=== PATIENT | male | born 1975 | race Caucasian/White ===

== ENCOUNTER 2017-03-31 14:00 | Emergency (ER) | payer SELFPAY ==
[~2017-03-31] VITALS: Ht 182.9 cm; Wt 124.0 kg
[~2017-03-31 14:00] MED LIST: GABA600T PO; LISI-360 PO; PARO10TA PO
[2017-03-31 14:04] VITALS: BP 149/92; PULSE 82; RESP 18; TEMP 98.1; O2SAT 97
[2017-03-31] MEDS ORDERED: BENZ1CAP51 PO (15:25)
[2017-03-31] MEDS ORDERED: ZITHTAB PO (15:25)
--- NOTE | 2017-03-31 15:26 | PD ---
HPI Chief Complaint: Cold / Flu Symptoms Time Seen by Provider: 15:16 Travel History International Travel<30 days: No Contact w/Intl Traveler<30days: No Traveled to known affect area: No History of Present Illness HPI 42-year-old male presents to the emergency department for evaluation of cold symptoms that been ongoing for 3 weeks. He states they are worsening. He reports cough, congestion. He states he has had intermittent chills, but no documented fevers. Patient denies any sinus pain or pressure. He reports some mild shortness of breath with coughing. No abdominal pain. Nausea, vomiting, diarrhea. Patient reports history of chronic back pain. He isn't currently prescribed any medications. Severity is mild. No exacerbating or alleviating factors. PFSH Past Medical History Blood Disorders: No Depression: Yes Heart Rhythm Problems: Yes (PALPITATIONS) Cancer: No Cardiovascular Problems: Yes Chest Pain: Yes Diabetes: Yes Patient Takes Glucophage: No Diminished Hearing: No Endocrine: Yes Gastrointestinal Disorders: Yes (HEP C) Genitourinary: No Hepatitis: Yes (C) Hypertension: Yes Immune Disorder: No Implanted Vascular Access Dvce: No Musculoskeletal: No Neurologic: No Psychiatric: Yes Reproductive: No Respiratory: No Influenza Vaccination: No Past Surgical History Other Surgery: Yes (LEFT LEG 1996) Social History Alcohol Use: Yes (OCCASIONALLY) Tobacco Use: No Substance Use: No (STATES "I QUIT A LONG TIME AGO") Allergies-Medications (Allergen,Severity, Reaction): Coded Allergies: No Known Allergies (Verified Adverse Reaction, Unknown, 03/31/17) Reported Meds & Prescriptions Reported Meds & Active Scripts Active No Active Prescriptions or Reported Medications Review of Systems Except as stated in HPI: all other systems reviewed are Neg Physical Exam Narrative GENERAL: Well-nourished, well-developed male patient, ambulatory. Afebrile. SKIN: Focused skin assessment warm/dry. HEAD: Normocephalic. Atraumatic. ENT: Mucosa pink and moist. No erythema or exudates. No uvular edema. No uvular , palatal, or tonsillar deviation. Airway patent. Nasal turbinates appear normal without nasal blood, purulent drainage or septal hematoma. Bilateral tympanic membranes are clear without erythema or perforation. EYES: No scleral icterus. No injection or drainage. NECK: Supple, trachea midline. No JVD or lymphadenopathy. CARDIOVASCULAR: Regular rate and rhythm without murmurs, gallops, or rubs. RESPIRATORY: Breath sounds equal bilaterally. No accessory muscle use. Lungs sounds are clear to auscultation. GASTROINTESTINAL: Abdomen soft, non-tender, nondistended. MUSCULOSKELETAL: No cyanosis, or edema. BACK: Nontender without obvious deformity. No CVA tenderness. Data Data Last Documented VS Vital Signs Date Time Temp Pulse Resp B/P (MAP) Pulse Ox O2 Delivery O2 Flow Rate FiO2 03/31/17 14:04 98.1 82 18 149/92 (111) 97 MDM Medical Decision Making Medical Screen Exam Complete: Yes Emergency Medical Condition: Yes Medical Record Reviewed: Yes Differential Diagnosis Pneumonia versus bronchitis versus URI Narrative Course 42-year-old male presents to the emergency department for evaluation of cough and congestion for 3 weeks. He reports his symptoms are worsening. Patient does have dry cough noted exam. Otherwise, he does appear well. Due to the length of symptoms and worsening symptoms, the patient will be discharged with a prescription for azithromycin, benzonatate capsules. He is encouraged to follow-up with her primary care physician. The patient was discharged in stable condition with instructions, including return instructions and follow up instructions. Diagnosis Primary Impression: Upper respiratory infection Qualified Codes: J06.9 - Acute upper respiratory infection, unspecified Referrals: Primary Care Physician call for appointment Patient Instructions: General Instructions, Upper Respiratory Infection (ED) Additional Instructions: Take antibiotic as instructed until gone. Take benzonatate capsules as directed as needed for cough. Follow-up with your primary care physician. Return to the emergency department for any acute worsening of symptoms. Med/Other Pt SpecificInfo: Prescription(s) given Scripts Benzonatate (Benzonatate) 200 Mg Cap 200 MG PO TID Y for COUGH, #21 CAP 0 Refills Prov: Naty Frances 03/31/17 Azithromycin (Zithromax Z-Allen) 250 Mg Dspk 250 MG PO DIRECTED for Infection, #1 DSPK 0 Refills 500 MG (2 tabs) day 1, then 1 tab days 2-5. Prov: Naty Frances 03/31/17 Disposition: 01 DISCHARGE HOME Condition: Stable Naty Frances Mar 31, 2017 15:26
== END 2017-03-31 15:34 | disposition home or self-care (01) ==
LOC: PHED 14:00 → PHEFT 15:34
DX: J06.9 Acute upper respiratory infection, unspecified (principal); R05 Cough; R06.02 Shortness of breath; E11.9 Type 2 diabetes mellitus without complications; I10 Essential (primary) hypertension; Z86.59 Personal history of other mental and behavioral disorders; Z86.79 Personal history of other diseases of the circulatory system; Z87.19 Personal history of other diseases of the digestive system; Z86.19 Personal history of other infectious and parasitic diseases
CPT/HCPCS: 99284

== ENCOUNTER 2017-05-04 12:41 | Emergency (ER) | payer SELFPAY ==
[~2017-05-04] VITALS: Ht 182.9 cm; Wt 124.4 kg
[~2017-05-04 12:41] MED LIST changes: +BENZ1CAP51 PO; -GABA600T PO; -LISI-360 PO; -PARO10TA PO; +ZITHTAB PO
[2017-05-04 12:49] VITALS: BP 146/98; PULSE 87; RESP 16; TEMP 98.3; O2SAT 98
[2017-05-04] MEDS ORDERED: PRED20 PO (13:52)
[2017-05-04] MEDS ORDERED: BENZ1CAP51 PO (13:52)
--- NOTE | 2017-05-04 13:53 | PD ---
HPI Chief Complaint: Cold / Flu Symptoms Time Seen by Provider: 13:45 Travel History International Travel<30 days: No Contact w/Intl Traveler<30days: No Traveled to known affect area: No History of Present Illness HPI 42-year-old male presents to the emergency department for evaluation of cough for 1 week. He denies any fevers or chills. No chest pain or short of breath. No abdominal pain. Nausea, vomiting, diarrhea. He states he was here approximately one month ago for similar symptoms. He was prescribed antibiotic and Tessalon Perles. These improved his symptoms, but the symptoms restarted again a week ago. He has no chronic medical problems and takes no prescribed medications. Moderate severity. No exacerbating or alleviating factors. PFSH Past Medical History Blood Disorders: No Depression: Yes Heart Rhythm Problems: Yes (PALPITATIONS) Cardiovascular Problems: Yes (HTN) Chest Pain: Yes Diabetes: Yes Patient Takes Glucophage: No Diminished Hearing: No Endocrine: Yes Gastrointestinal Disorders: Yes (HEP C) Genitourinary: No Hepatitis: Yes (C) Hypertension: Yes Immune Disorder: No Implanted Vascular Access Dvce: No Musculoskeletal: No Neurologic: No Psychiatric: Yes Reproductive: No Respiratory: No Past Surgical History Other Surgery: Yes (LEFT LEG 1996) Social History Alcohol Use: Yes (OCCASIONALLY) Tobacco Use: No Substance Use: No (STATES "I QUIT A LONG TIME AGO") Allergies-Medications (Allergen,Severity, Reaction): Coded Allergies: No Known Allergies (Verified Adverse Reaction, Unknown, 05/04/17) Reported Meds & Prescriptions Reported Meds & Active Scripts Active No Active Prescriptions or Reported Medications Review of Systems Except as stated in HPI: all other systems reviewed are Neg Physical Exam Narrative GENERAL: Well-nourished, well-developed male patient, ambulatory. Afebrile. SKIN: Focused skin assessment warm/dry. HEAD: Normocephalic. Atraumatic. ENT: Mucosa pink and moist. No erythema or exudates. No uvular edema. No uvular , palatal, or tonsillar deviation. Airway patent. Nasal turbinates appear normal without nasal blood, purulent drainage or septal hematoma. Bilateral tympanic membranes are clear without erythema or perforation. EYES: No scleral icterus. No injection or drainage. NECK: Supple, trachea midline. No JVD or lymphadenopathy. CARDIOVASCULAR: Regular rate and rhythm without murmurs, gallops, or rubs. RESPIRATORY: Breath sounds equal bilaterally. No accessory muscle use. Lungs sounds clear to auscultation. Dry cough noted GASTROINTESTINAL: Abdomen soft, non-tender, nondistended. MUSCULOSKELETAL: No cyanosis, or edema. BACK: Nontender without obvious deformity. No CVA tenderness. Data Data Last Documented VS Vital Signs Date Time Temp Pulse Resp B/P (MAP) Pulse Ox O2 Delivery O2 Flow Rate FiO2 05/04/17 12:49 98.3 87 16 146/98 (114) 98 MDM Medical Decision Making Medical Screen Exam Complete: Yes Emergency Medical Condition: Yes Medical Record Reviewed: Yes Differential Diagnosis URI versus bronchitis versus pneumonia Narrative Course 42-year-old male presents to the emergency department for evaluation of cough for 1 week. He has no other symptoms or complaints. Patient appears well and exam. The symptoms and physical are consistent with viral upper respiratory infection. Patient was discharged with a prescription for Tessalon Perles, prednisone. He can take [id number] cough syrup as needed. He is to follow primary care physician returning here for any acute worsening of symptoms. The patient was discharged in stable condition with instructions, including return instructions and follow up instructions. Diagnosis Primary Impression: Upper respiratory infection Qualified Codes: J06.9 - Acute upper respiratory infection, unspecified; B97.89 - Other viral agents as the cause of diseases classified elsewhere Referrals: Primary Care Physician call for appointment Patient Instructions: General Instructions, Upper Respiratory Infection (ED) Additional Instructions: Take benzonatate capsules as directed as needed for cough. Take prednisone as directed. [id number]-[id number] cough syrup, such as Delsym. Follow-up with your primary care physician. Return to the emergency department for any acute worsening of symptoms. Med/Other Pt SpecificInfo: Prescription(s) given Scripts Prednisone (Prednisone) 20 Mg Tab 40 MG PO DAILY, #10 TAB 0 Refills Take 40 mg (2 tablets) daily for 5 days Prov: Naty Frances 05/04/17 Benzonatate (Benzonatate) 200 Mg Cap 200 MG PO TID Y for COUGH, #21 CAP 0 Refills Prov: Naty Frances 05/04/17 Disposition: 01 DISCHARGE HOME Condition: Stable Naty Frances May 04, 2017 13:53
== END 2017-05-04 14:36 | disposition home or self-care (01) ==
LOC: PHEFT 12:41
DX: J06.9 Acute upper respiratory infection, unspecified (principal); B97.89 Other viral agents as the cause of diseases classified elsewhere; B19.20 Unspecified viral hepatitis C without hepatic coma; E11.9 Type 2 diabetes mellitus without complications; F32.9 Major depressive disorder, single episode, unspecified; I10 Essential (primary) hypertension
CPT/HCPCS: 99284

== ENCOUNTER 2017-06-28 15:02 | Emergency (ER) | payer SELFPAY ==
[~2017-06-28] VITALS: Ht 182.9 cm; Wt 122.0 kg
[~2017-06-28 15:02] MED LIST changes: +PRED20 PO; -ZITHTAB PO
[2017-06-28 15:07] VITALS: BP 175/88; PULSE 95; RESP 16; TEMP 98.4; O2SAT 96
[2017-06-28] MEDS ORDERED: methylPREDNISolone SOD SUCC 125 MG/2 ML VIAL IM ONE (15:45)
[2017-06-28] MEDS ORDERED: DICYCLOMINE HCL 20 MG/2 ML VIAL IM ONE (15:45)
[2017-06-28] MEDS ORDERED: ONDANSETRON ODT 4 MG TAB PO ONE (15:45)
[2017-06-28 16:34] VITALS: BP 140/100; PULSE 97; RESP 20; O2SAT 98
[2017-06-28] MEDS ORDERED: ONDANSETRON HCL 4 MG/2 ML VIAL IV PUSH ONE (17:45)
[2017-06-28] MEDS ORDERED: HYOSCYAMINE 0.125 MG TAB PO ONE (17:45)
[2017-06-28] MEDS ORDERED: HYDROmorphone HCL PF 1 MG/ML VIAL IV PUSH ONE (17:45)
[2017-06-28 17:56] VITALS: BP 161/102; PULSE 97; RESP 16; O2SAT 96
[2017-06-28] MEDS ORDERED: HYDROmorphone HCL PF 2 MG/ML VIAL IV PUSH ONE (18:00)
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
[2017-06-28] MEDS ORDERED: SODIUM CHLOR 0.9% 1000 ML INJ 1,000 ML IV ONE (18:30)
[2017-06-28] MEDS ORDERED: LEVS0.123 PO (18:33)
[2017-06-28] MEDS ORDERED: ZOFR4TAB PO (18:33)
[2017-06-28 19:15] VITALS: BP 153/83
== END 2017-06-28 19:17 | disposition home or self-care (01) ==
LOC: PHED 15:02
DX: A08.4 Viral intestinal infection, unspecified (principal); G43.909 Migraine, unspecified, not intractable, without status migrainosus; I10 Essential (primary) hypertension; E11.9 Type 2 diabetes mellitus without complications; F32.9 Major depressive disorder, single episode, unspecified; W57.XXXA Bitten or stung by nonvenomous insect and other nonvenomous arthropods, initial encounter; Z86.19 Personal history of other infectious and parasitic diseases; Z79.899 Other long term (current) drug therapy
CPT/HCPCS: 96361; 96372; 96374; 96375; 99284; J0500; J1170; J2405; J2930; J7030

== ENCOUNTER 2017-08-20 03:51 | Emergency (ER) | payer SELFPAY ==
[~2017-08-20] VITALS: Ht 182.9 cm; Wt 122.6 kg
[~2017-08-20 03:51] MED LIST changes: -BENZ1CAP51 PO; +LEVS0.123 PO; -PRED20 PO; +ZOFR4TAB PO
[2017-08-20 03:57] VITALS: BP 136/90; PULSE 99; RESP 16; TEMP 98.4; O2SAT 96
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
--- NOTE | 2017-08-20 05:28 | RADRPT ---
EXAM DATE/TIME: 08/20/2017 04:27 [facility] COMPARISON: No previous studies available for comparison. INDICATIONS : Right knee pain after fall. MEDICAL HISTORY : None. SURGICAL HISTORY : None. ENCOUNTER: Initial ACUITY: 1 day PAIN SCORE: 8/10 LOCATION: Right knee. FINDINGS: Bones appear osteopenic. I don't see an acute fracture or subluxation. There is mild 3 compartment os teoarthritis and a small joint effusion. CONCLUSION: 1. No fracture demonstrated. 2. Osteopenia and mild osteoarthritis. 3. Nonspecific small joint effusion. John Mi MD on August 20, 2017 at 5:26 Board Certified Radiologist. This report was verified electronically.
[2017-08-20] MEDS ORDERED: PERC7.5T13 PO (05:33)
[2017-08-20] MEDS ORDERED: PROC10TA PO (05:33)
[2017-08-20] MEDS ORDERED: HYOS0.1261 PO (05:40)
[2017-08-20] MEDS ORDERED: oxyCODONE/ACETAMINOPHEN 10 MG/325 MG TAB PO ONE (05:45)
[2017-08-20 06:00] VITALS: BP 136/84; PULSE 95; RESP 16; O2SAT 100
== END 2017-08-20 06:16 | disposition home or self-care (01) ==
LOC: PHED 03:51
DX: S00.431A Contusion of right ear, initial encounter (principal); S80.01XA Contusion of right knee, initial encounter; R11.0 Nausea; R51 Headache; I10 Essential (primary) hypertension; F32.9 Major depressive disorder, single episode, unspecified; E11.9 Type 2 diabetes mellitus without complications; Y04.2XXA Assault by strike against or bumped into by another person, initial encounter; Z86.19 Personal history of other infectious and parasitic diseases
CPT/HCPCS: 70450; 70486; 73564; 99284

== ENCOUNTER 2017-10-18 13:00 | Emergency (ER) | payer SELFPAY ==
[~2017-10-18 13:00] MED LIST changes: +HYOS0.1261 PO; +PERC7.5T13 PO; +PROC10TA PO
[2017-10-18 13:02] VITALS: BP 134/76; PULSE 94; RESP 20; TEMP 98.7; O2SAT 95
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
[2017-10-18] MEDS ORDERED: KETOROLAC TROMETHAMINE 60 MG/2 ML (IM) VIAL IM ONE (14:45)
[2017-10-18] MEDS ORDERED: AUGM875T3 PO (22:41)
[2017-10-18] MEDS ORDERED: TRAM50TA PO (22:41)
== END 2017-10-18 14:47 | disposition home or self-care (01) ==
LOC: PHEFT 13:00
DX: S16.1XXA Strain of muscle, fascia and tendon at neck level, initial encounter (principal); S00.12XA Contusion of left eyelid and periocular area, initial encounter; M25.561 Pain in right knee; F32.9 Major depressive disorder, single episode, unspecified; I10 Essential (primary) hypertension; E11.9 Type 2 diabetes mellitus without complications; Z86.19 Personal history of other infectious and parasitic diseases; Y04.2XXA Assault by strike against or bumped into by another person, initial encounter
CPT/HCPCS: 70450; 72125; 73564; 96372; 99284; J1885

== ENCOUNTER 2017-10-18 21:19 | Emergency (ER) | payer SELFPAY ==
[2017-10-18 21:26] VITALS: BP 151/97; PULSE 96; RESP 20; TEMP 99.4; O2SAT 100
[2017-10-18] MEDS ORDERED: LIDOCAINE HCL 1% PF 30 ML VIAL ONE (21:43)
[2017-10-18] MEDS ORDERED: LIDOCAINE HCL 1% 10 ML VIAL INFIL ONE (21:45)
[2017-10-18] MEDS ORDERED: LIDOCAINE HCL 1% 30 ML VIAL INFIL ONE (21:45)
[2017-10-18] MEDS ORDERED: LIDOCAINE HCL 1% 20 ML VIAL INFIL ONE (21:45)
[2017-10-18] MEDS ORDERED: AUGM875T3 PO (22:41)
[2017-10-18] MEDS ORDERED: TRAM50TA PO (22:41)
[2017-10-18] MEDS ORDERED: ACETAMINOPHEN/HYDROcodone 325 MG/5 MG TAB PO ONE (22:45)
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
[2017-10-18 23:26] VITALS: RESP 18
[2017-10-18 23:37] VITALS: BP 142/98
== END 2017-10-18 23:53 | disposition home or self-care (01) ==
LOC: PHEFT 21:19
DX: S01.511A Laceration without foreign body of lip, initial encounter (principal); F32.9 Major depressive disorder, single episode, unspecified; R00.2 Palpitations; I10 Essential (primary) hypertension; W18.00XA Striking against unspecified object with subsequent fall, initial encounter; Z86.19 Personal history of other infectious and parasitic diseases
CPT/HCPCS: 12052